=== PATIENT | male | born 1985 | race Caucasian/White ===

== ENCOUNTER 2020-02-11 04:37 | Observation (INO) ==
[2020-02-11 05:02] VITALS: BMI 36.1
[2020-02-11] MEDS ORDERED: NS 1000 ML 1,000 ML ONE (05:21)
--- NOTE | 2020-02-11 05:42 | DR.EXTPAIN ---
HPI Time seen Time Seen by Provider: 02/11/20 05:41 PCP Primary Care Physician: OLENA Complaint/Symptoms Chief Complaint:: PT TO ER FOR COMPLAINT OF RIGHT KNEE PAIN STATING THAT IT IS SWELLING AND DRAINING. PT HAS SEROSANGUINOUS DRAINAGE NOTED. PT WAS SEEN ON FEBRUARY 04 AND WAS GIVEN PREDNISONE AND INDOMETHACIN HE STATES THAT IT HAS GOTTEN WORSE. DR. JEFFERS AT BEDSIDE DURING TRIAGE AND WOUND CULTURES X2 COLLECTED LABLED AND TAKEN TO LAB. COVID-19 Coronavirus risk:travel/contact w/high risk person: No Has patient experienced Coronavirus symptoms: No Source History Provided: Patient Mode of arrival Mode of Arrival: Ambulatory Timing Onset of Chief Complaint: 02/05/20 PMH PMH Past Medical History: No Past Surgical History: No Surgical History: Abdominal Surgery Family History History of Family Medical Conditions: Yes Family Medical History: [place] and Coronary Artery Disease Social History Does patient currently use any type of tobacco product: No Have you used tobacco products in the last 12 months: No Type of Tobacco Use: None Does any household member use tobacco: No Alcohol Use: None Do you use any recreational Drugs:: No Lives With: Spouse Lives Where: Home Travel Risk Coronavirus risk:travel/contact w/high risk person: No Has patient experienced Coronavirus symptoms: No Infectious screening In the last 2 months have you had wt loss of >10#?: NO Have you had fever, night sweats or hemotysis?: No Have you traveled outside the country in the last 6 months?: No Isolation: Standard PE Vital Signs Vitals: Temperature 98.0 F Pulse Rate [Right Radial] 78 Pulse Rate 91 Respiratory Rate 18 Blood Pressure [Left Arm] 128/82 Blood Pressure 158/92 O2 Sat by Pulse Oximetry 99 ROR Labs Reviewed Result Diagrams: 02/11/20 05:47 02/11/20 05:47 Laboratory: WBC 17.9 X10^3/uL (3.6-10.0) H 02/11/20 05:47 RBC 4.80 X10^6/uL (4.7-6.0) 02/11/20 05:47 Hgb 14.8 g/dL (13.5-18.0) 02/11/20 05:47 Hct 43.0 % (42.0-54.0) 02/11/20 05:47 MCV 89.5 fL (80.0-100.0) 02/11/20 05:47 MCH 30.9 pg (27.0-34.0) 02/11/20 05:47 MCHC 34.5 g/dL (33.0-35.0) 02/11/20 05:47 RDW 13.1 % (11.6-16.5) 02/11/20 05:47 Plt Count 381 X10^3/uL (150.0-450.0) 02/11/20 05:47 MPV 8.1 fL (7.4-11.0) 02/11/20 05:47 Neut % (Auto) 72.7 % (42.0-75.0) 02/11/20 05:47 Lymph % (Auto) 15.8 % (21.0-51.0) L 02/11/20 05:47 [place] % (Auto) 10.2 % (0.0-13.0) 02/11/20 05:47 Eos % (Auto) 0.6 % (0.9-2.9) L 02/11/20 05:47 Baso % (Auto) 0.7 % (0.2-1.0) 02/11/20 05:47 Neut # (Auto) 13.0 x10^3/uL (2.2-4.8) H 02/11/20 05:47 Lymph # (Auto) 2.8 X10^3/uL (1.3-2.9) 02/11/20 05:47 [place] # (Auto) 1.8 x10^3/uL (0.3-0.8) H 02/11/20 05:47 Eos # (Auto) 0.1 x10^3/uL (0.0-0.2) 02/11/20 05:47 Baso # (Auto) 0.1 X10^3/uL (0.0-0.1) 02/11/20 05:47 Absolute Nucleated RBC 0.1 /100WBC 02/11/20 05:47 Sodium 138 mmol/L (136-145) 02/11/20 05:47 Corrected Sodium TNP 02/11/20 05:47 Potassium 3.4 mmol/L (3.5-5.1) L 02/11/20 05:47 Chloride 100 mmol/L (98-107) 02/11/20 05:47 Carbon Dioxide 30.0 mmol/L (21-32) 02/11/20 05:47 BUN 18 mg/dL (7-18) 02/11/20 05:47 Creatinine 1.09 mg/dL (0.70-1.30) 02/11/20 05:47 Est GFR (MDRD) Af Amer > 60 (>60) 02/11/20 05:47 Est GFR (MDRD) Non-Af > 60 (>60) 02/11/20 05:47 Glucose 106 mg/dL (65-99) H 02/11/20 05:47 Calcium 9.3 mg/dL (8.5-10.1) 02/11/20 05:47 Corrected Calcium TNP 02/11/20 05:47 Total Bilirubin 0.70 mg/dL (0.2-1.0) 02/11/20 05:47 AST 15 Units/L (15-37) 02/11/20 05:47 ALT 29 Units/L (12-78) 02/11/20 05:47 Alkaline Phosphatase 74 Units/L (46-116) 02/11/20 05:47 C-Reactive Protein 54.60 mg/L (0-3.0) H 02/11/20 05:47 Total Protein 8.5 g/dL (6.4-8.2) H 02/11/20 05:47 Albumin 3.7 g/dL (3.4-5.0) 02/11/20 05:47 Globulin 4.8 g/dL (2.5-4.5) H 02/11/20 05:47 Albumin/Globulin Ratio 0.8 Ratio (1.1-2.1) L 02/11/20 05:47 Opioid Opioid Risk Tool Age (Olaf box if 16-45): Yes History of Preadolescent Sexual Abuse: No Total: 1 Total Score Risk Category: Low Risk Copyright: Jeremiah LIZAMA predicting aberrant behaviors
[2020-02-11] MEDS: NS 1000 ML 1,000 ML IV SCH ×3 (05:44→22:10)
[2020-02-11 05:58] LABS: BASOPHILS # (AUTO) 0.1 X10^3/uL (0.0-0.1); BASOPHILS % (AUTO) 0.7 % (0.2-1.0); EOSINOPHILS # (AUTO) 0.1 x10^3/uL (0.0-0.2); EOSINOPHILS % (AUTO) 0.6 % (0.9-2.9); HEMOGLOBIN 14.8 g/dL (13.5-18.0); LYMPHOCYTES # (AUTO) 2.8 X10^3/uL (1.3-2.9); LYMPHOCYTES % (AUTO) 15.8 % (21.0-51.0); MEAN CORPUSCULAR HEMOGLOBIN 30.9 pg (27.0-34.0); MEAN CORPUSCULAR HGB CONC 34.5 g/dL (33.0-35.0); MEAN CORPUSCULAR VOLUME 89.5 fL (80.0-100.0); MEAN PLATELET VOLUME 8.1 fL (7.4-11.0); MONOCYTES # (AUTO) 1.8 x10^3/uL (0.3-0.8); MONOCYTES % (AUTO) 10.2 % (0.0-13.0); NEUTROPHILS % (AUTO) 72.7 % (42.0-75.0); PLATELET COUNT 381 X10^3/uL (150.0-450.0); RED CELL DISTRIBUTION WIDTH 13.1 % (11.6-16.5); WHITE BLOOD COUNT 17.9 X10^3/uL (3.6-10.0)
--- NOTE | 2020-02-11 05:58 | RAD ---
HISTORYSWELLING TO RIGHT KNEE WITH DRAINAGESTUDYKNEE, AP/LAT RIGHTCOMPARISONNoneFINDINGSLimited assessment due to obliquity of the lateral view. Nonspecific prepatellar soft tissue edema. 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 Suspect small suprapatellar effusion.IMPRESSIONNonspecific prepatellar soft tissue prominence may represent edema, hematoma, or prepatellar bursitis. No acute osseous abnormality identified.Question small suprapatellar effusion.Electronically signed by: Barbara Edwards (Feb 11, 2020 05:57:37)
[2020-02-11] MEDS ORDERED: VANCOMYCIN IV *PREMIX 1 G/200 ML BAG 1 G/200 ML PIGGYBACK IV ONE (06:41)
[2020-02-11] MEDS ORDERED: VANCOMYCIN HCL ONE (06:44)
[2020-02-11 06:45] LABS: ALANINE AMINOTRANSFERASE 29 Units/L (12-78); ALBUMIN 3.7 g/dL (3.4-5.0); ALKALINE PHOSPHATASE 74 Units/L (46-116); ASPARTATE AMINO TRANSFERASE 15 Units/L (15-37); BLOOD UREA NITROGEN 18 mg/dL (7-18); CALCIUM 9.3 mg/dL (8.5-10.1); CHLORIDE 100 mmol/L (98-107); CREATININE 1.09 mg/dL (0.70-1.30); SODIUM 138 mmol/L (136-145); TOTAL PROTEIN 8.5 g/dL (6.4-8.2); eGFR NON BLACK RACES > 60 (>60)
[2020-02-11] MEDS ORDERED: NS 250 ML IV 250 ML IV ONE (06:45)
[2020-02-11] MEDS ORDERED: TORADOL 30 MG VIAL IVP ONE (06:48)
[2020-02-11] MEDS ORDERED: TORADOL 30 MG VIAL ONE (06:51)
[2020-02-11] MEDS ORDERED: ZOFRAN TAB 4 MG PO PRN (08:32)
[2020-02-11] MEDS ORDERED: NS 1000 ML 1,000 ML IV SCH (08:32)
[2020-02-11] MEDS: VANCOMYCIN HCL 1 G in D5W 250 ML IV 250 ML IV SCH ×3 (12:32→21:39)
[2020-02-11] MEDS: MOTRIN TAB 600 MG PO PRN ×2 (13:00→22:09)
[2020-02-11] MEDS: TORADOL 30 MG VIAL IVP PRN (15:22)
--- NOTE | 2020-02-11 18:39 | DR.H&P ---
H&P - History & Physical for Day of: H&P Date: 02/11/20 - Chief Complaint Chief Complaint: RIGHT KNEE PAIN, REDNESS AND SWELLING - History of Present Illness History of Present Illness: PT IS 34 WM ER ADMISSION AFTER PRESENTING TO THE ER FOR 3 RD VISIT RELATED TO RIGHT KNEE PAIN, REDNESS AND SWELLING. PT STATES HE THOUGHT HE HAD "INGROWN HAIR" ON KNEE CAP ~ 1 WEEK AGO. PT WAS SEEN IN ER AND STARTED ON NSAID AND STEROIDS WITHOUT IMPROVEMENT. PT REPORTS HX OF MCL INJURY IN THE PAST WITHOUT SURGERY. PT HAD WBC 17K ON ADMISSION. PT HAD ASPIRATION OF DRAINAGE PER DR JEFFERS IN ER, ADMITTED FOR IV VANCOMYCIN TREATMENT OF CELLULITIS OF KNEE. - Past Medical History Past Medical History: denies: Coronary Artery Disease, Diabetes, Hypertension - Past Surgical History Surgical History: Abdominal Surgery - Family History Family Medical History: [place], Coronary Artery Disease - Social History Does patient currently use any type of tobacco product: No Have you used tobacco products in the last 12 months: No Type of Tobacco Use: None Does any household member use tobacco: No Alcohol Use: None Drug Use: None - Medications Home Medications: No Known Drug Allergies Allergy (Verified 02/05/20 01:51) - Review of Systems Constitutional: No Symptoms Reported Eyes: No Symptoms Reported ENT: No Symptoms Reported Respiratory: No Symptoms Reported Cardiovascular: No Symptoms Reported Gastrointestinal: Nausea Genitourinary: No Symptoms Reported Musculoskeletal: Leg Pain Skin: Wound Neurological: No Symptoms Reported - Physical Exam Vital Signs: Temperature 98.0 F Pulse Rate [Right Radial] 85 Pulse Rate 91 Respiratory Rate 18 Blood Pressure [Left Arm] 129/65 Blood Pressure 158/92 O2 Sat by Pulse Oximetry 96 Oriented: Normal Eyes: Normal Ear: Normal Nose: Normal Throat: Normal Respiratory: Clear Throughout Cardiovascular: Normal : Normal Auscultation: Bowel Sounds: Normal Palpation: Normal Tenderness: Normal Skin: Red, Tender, Hot, Wound (ABSCESS FORMATION TO RIGHT KNEE ) Musculoskeletal: Right, Knee, Swelling, Tender Psychiatric: Normal Mood Description: Calm Speech Pattern: Clear, Appropriate - Assessment/Plan (1) Cellulitis of knee, right Status: Acute Plan: ADMIT, WOUND AND BLOOD CULTURE ON ADMISSION. URIC ACID LEVEL , POTASSIUM REPLACEMENT. IV VANCOMYCIN, CT RIGHT KNEE (MRI CONTRAINDICATION). PAIN CONTROL, IV HYDRATION (2) Effusion, right knee Status: Acute - Allergies Allergies/Adverse Reactions: Allergies Allergy/AdvReac Type Severity Reaction Status Date / Time No Known Drug Allergies Allergy Verified 02/05/20 01:51
[2020-02-11] MEDS ORDERED: HYDROGEN PEROXIDE 3% ONE (20:24)
[2020-02-12] MEDS: TORADOL 30 MG VIAL IVP PRN (01:22)
[2020-02-12] MEDS: NS 1000 ML 1,000 ML IV SCH (03:07)
[2020-02-12 04:28] VITALS: BP 157/84
== END 2020-02-12 04:25 | disposition left against medical advice (07) ==
LOC: ER 04:37 → MED/SURG 06:54 → INTOOBSV 06:54 → MED/SURG 08:26
PROVIDERS: ADMIT Internal Medicine; ATTEND Internal Medicine
DX: Z11.59 Encounter for screening for other viral diseases; I10 Essential (primary) hypertension; M25.461 Effusion, right knee; L03.116 Cellulitis of left lower limb; R79.82 Elevated C-reactive protein (CRP); I25.10 Atherosclerotic heart disease of native coronary artery without angina pectoris; B95.62 Methicillin resistant Staphylococcus aureus infection as the cause of diseases classified elsewhere; E11.65 Type 2 diabetes mellitus with hyperglycemia; M25.561 Pain in right knee
CPT/HCPCS: 36415; 73560; 80053; 85025; 86140; 87040; 87070; 87075; 87077; 87186; 87205; 87635; 96365; 96367; 96374; 96375; 99284; A4222; G0378; J1885; J3370; J7030; J7060

== ENCOUNTER 2020-02-12 23:17 | Inpatient (IN) ==
--- NOTE | 2020-02-13 00:12 | DR.EXTPAIN ---
HPI Time seen Time Seen by Provider: 02/12/20 23:56 PCP Primary Care Physician: OLENA HPI Comment HPI Comment: Patient left AMA yesterday morning. Admitted for cellulitis of right knee after failing outpatient therapy. Patient notes that knee pain and re dness is worse so he decided to come back in. Complaint/Symptoms Chief Complaint Doctor Comments: knee pain Chief Complaint:: PT INTO ED REQUESTING WHEELCHAIR AND C/O EDEMA TO RIGHT KNEE; PATIENT WAS ADMITTED AT THIS FACILITY AND SIGNED OUT AMA ON Tuesday. COVID-19 Coronavirus risk:travel/contact w/high risk person: No Has patient experienced Coronavirus symptoms: Yes Coronavirus symptoms experienced: Fever Nurses notes reviewed Nurses Notes Review: Yes Source History Provided: Patient Mode of arrival Mode of Arrival: Ambulatory Timing Onset of Chief Complaint: 02/05/20 Associated signs and symptoms Associated Signs and Symptoms: Fever and Other (joint pain) PMH PMH Past Medical History: Yes Past Surgical History: No Surgical History: Abdominal Surgery Family History History of Family Medical Conditions: No Family Medical History: [place] and Coronary Artery Disease Social History Alcohol Use: None Do you use any recreational Drugs:: No Lives With: Family Lives Where: Home Travel Risk Coronavirus risk:travel/contact w/high risk person: No Has patient experienced Coronavirus symptoms: Yes Coronavirus symptoms experienced: Fever Infectious screening In the last 2 months have you had wt loss of >10#?: NO Have you had fever, night sweats or hemotysis?: No Have you traveled outside the country in the last 6 months?: No Isolation: Standard ROS Review of Systems Constitutional: No Symptoms Reported Eyes: No Symptoms Reported ENTM: No Symptoms Reported Respiratoy: No Symptoms Reported Cardiovascular: No Symptoms Reported Gastrointestinal/Abdominal: No Symptoms Reported Genitourinary: No Symptoms Reported Neurological: No Symptoms Reported Musculoskeletal: See HPI, Joint Pain and Joint Swelling Integumentary: No Symptoms Reported Hematologic/Lymphatic: No Symptoms Reported Endocrine: No Symptoms Reported Psychiatric: No Symptoms Reported All Other Systems: Reviewed and Negative PE Vital Signs Vitals: Temperature 100.2 F Pulse Rate 93 Respiratory Rate 22 Blood Pressure [Left Arm] 157/84 Blood Pressure 135/70 O2 Sat by Pulse Oximetry 97 General Limitations: No Limitations Head Head Exam: Normal Inspection, Atraumatic and Normocephalic Eyes Eye exam: Normal Appearance, PERRL and EOMI ENT ENT Exam: Normal Exam and Normal Oropharynx Neck Neck Exam: Normal Inspection and Full ROM Chest Chest Inspection: Normal Inspection and Symmetric Chest Wall Rise Respiratory Respiratory Exam: Normal Lung Sounds Bilat Cardiovascular Cardiovascular Exam: Regular Rate and Normal Rhythm Abdominal Exam Abdominal Exam: Normal Inspection Extremities Extremities Exam: Tenderness, Joint Swelling and Other (erythema at right knee) Lower Extremities Knee Exam: Tenderness, Swelling and Erythema MDM Differential Diagnosis Differential Diagnosis: Other (cellulitis) COURSE Treatment Treatment: restart antibiotics from previous admit. spoke with Dr. Lopez who agrees with and accepts patient for admission. ROR Labs Reviewed Laboratory Results Reviewed?: Yes Opioid Opioid Risk Tool Age (Olaf box if 16-45): Yes History of Preadolescent Sexual Abuse: No Total: 1 Total Score Risk Category: Low Risk Copyright: Jeremiah LIZAMA predicting aberrant behaviors Diagnosis Discharge Problem: Cellulitis of knee, right
[2020-02-13] MEDS ORDERED: VANCOMYCIN IV *PREMIX 1 G/200 ML BAG 1 G/200 ML PIGGYBACK IV SCH (00:18)
[2020-02-13] MEDS ORDERED: VANCOMYCIN HCL ONE (00:26)
[2020-02-13] MEDS ORDERED: NS 1000 ML 1,000 ML ONE (00:27)
[2020-02-13] MEDS ORDERED: NS 250 ML IV 250 ML IV ONE (00:28)
[2020-02-13 00:41] LABS: BASOPHILS # (AUTO) 0.1 X10^3/uL (0.0-0.1); BASOPHILS % (AUTO) 0.4 % (0.2-1.0); EOSINOPHILS # (AUTO) 0.3 x10^3/uL (0.0-0.2); EOSINOPHILS % (AUTO) 1.9 % (0.9-2.9); HEMATOCRIT 41.4 % (42.0-54.0); HEMOGLOBIN 14.1 g/dL (13.5-18.0); LYMPHOCYTES # (AUTO) 2.3 X10^3/uL (1.3-2.9); LYMPHOCYTES % (AUTO) 14.1 % (21.0-51.0); MEAN CORPUSCULAR HEMOGLOBIN 30.7 pg (27.0-34.0); MEAN CORPUSCULAR HGB CONC 34.1 g/dL (33.0-35.0); MEAN PLATELET VOLUME 7.4 fL (7.4-11.0); MONOCYTES # (AUTO) 1.6 x10^3/uL (0.3-0.8); MONOCYTES % (AUTO) 9.7 % (0.0-13.0); NEUTROPHILS # (AUTO) 12.2 x10^3/uL (2.2-4.8); NEUTROPHILS % (AUTO) 73.9 % (42.0-75.0); PLATELET COUNT 341 X10^3/uL (150.0-450.0); RED CELL DISTRIBUTION WIDTH 12.9 % (11.6-16.5); WHITE BLOOD COUNT 16.5 X10^3/uL (3.6-10.0)
[2020-02-13 00:48] LABS: ALANINE AMINOTRANSFERASE 35 Units/L (12-78); ALBUMIN 3.3 g/dL (3.4-5.0); ALKALINE PHOSPHATASE 76 Units/L (46-116); ASPARTATE AMINO TRANSFERASE 15 Units/L (15-37); BLOOD UREA NITROGEN 13 mg/dL (7-18); CALCIUM 8.3 mg/dL (8.5-10.1); CARBON DIOXIDE 28.5 mmol/L (21-32); CHLORIDE 101 mmol/L (98-107); COR CA(FOR HYPOALB) 8.9 mg/dL (8.5-10.1); CREATININE 1.05 mg/dL (0.70-1.30); SODIUM 136 mmol/L (136-145); TOTAL PROTEIN 7.8 g/dL (6.4-8.2); eGFR NON BLACK RACES > 60 (>60)
[2020-02-13] MEDS: NS 1000 ML 1,000 ML IV SCH ×4 (00:55→20:33)
[2020-02-13 02:58] VITALS: BMI 41.9
[2020-02-13] MEDS ORDERED: VANCOMYCIN HCL 500 MG, VANCOMYCIN HCL 1 G in D5W 250 ML IV 250 ML IV SCH (03:00)
[2020-02-13 06:28] LABS: BASOPHILS # (AUTO) 0.1 X10^3/uL (0.0-0.1); BASOPHILS % (AUTO) 0.4 % (0.2-1.0); EOSINOPHILS # (AUTO) 0.3 x10^3/uL (0.0-0.2); EOSINOPHILS % (AUTO) 1.8 % (0.9-2.9); HEMATOCRIT 39.8 % (42.0-54.0); HEMOGLOBIN 13.4 g/dL (13.5-18.0); LYMPHOCYTES # (AUTO) 2.7 X10^3/uL (1.3-2.9); LYMPHOCYTES % (AUTO) 17.3 % (21.0-51.0); MEAN CORPUSCULAR HEMOGLOBIN 30.6 pg (27.0-34.0); MEAN CORPUSCULAR HGB CONC 33.7 g/dL (33.0-35.0); MEAN CORPUSCULAR VOLUME 90.9 fL (80.0-100.0); MEAN PLATELET VOLUME 7.2 fL (7.4-11.0); MONOCYTES # (AUTO) 1.7 x10^3/uL (0.3-0.8); MONOCYTES % (AUTO) 11.1 % (0.0-13.0); NEUTROPHILS # (AUTO) 10.9 x10^3/uL (2.2-4.8); NEUTROPHILS % (AUTO) 69.4 % (42.0-75.0); PLATELET COUNT 292 X10^3/uL (150.0-450.0); RED BLOOD COUNT 4.38 X10^6/uL (4.7-6.0); RED CELL DISTRIBUTION WIDTH 12.9 % (11.6-16.5); WHITE BLOOD COUNT 15.6 X10^3/uL (3.6-10.0)
[2020-02-13 06:36] LABS: ALANINE AMINOTRANSFERASE 29 Units/L (12-78); ALKALINE PHOSPHATASE 74 Units/L (46-116); ASPARTATE AMINO TRANSFERASE 14 Units/L (15-37); BLOOD UREA NITROGEN 10 mg/dL (7-18); CALCIUM 8.3 mg/dL (8.5-10.1); CARBON DIOXIDE 26.6 mmol/L (21-32); CHLORIDE 103 mmol/L (98-107); COR CA(FOR HYPOALB) 9.1 mg/dL (8.5-10.1); COR NA(FOR HYPERGLY) 139 mmol/L (136-145); CREATININE 0.94 mg/dL (0.70-1.30); SODIUM 138 mmol/L (136-145); TOTAL PROTEIN 7.3 g/dL (6.4-8.2); eGFR NON BLACK RACES > 60 (>60)
[2020-02-13] MEDS ORDERED: NEOSPORIN OINT ONE ×3 (08:40→21:44)
[2020-02-13] MEDS: VANCOMYCIN HCL 500 MG, VANCOMYCIN HCL 1 G in D5W 250 ML IV 250 ML IV SCH ×2 (08:51→20:33)
[2020-02-13] MEDS ORDERED: PHARMACY CONSULT - VANCOMYCIN XX SCH (09:00)
[2020-02-13] MEDS: NORCO 5/325 MG TAB PO PRN ×3 (09:20→21:39)
--- NOTE | 2020-02-13 14:01 | DR.H&P ---
H&P History & Physical for Day of: H&P Date: 02/13/20 Chief Complaint Chief Complaint: right knee redness and drainage Allergies Allergies Allergy/AdvReac Type Severity Reaction Status Date / Time No Known Drug Allergies Allergy Verified 02/05/20 01:51 History of Present Illness History of Present Illness: Mr. Subramanian is a 34y/o male who presented with worsening right knee and leg cellulitis. He was seen in the ER previously and given prednisone and indomethacin. He came again and was admitted due to worsening redness and purulent drainage. Patient left AMA after staying one day and now presented again. He denies fever or chills. No hx of skin/soft tissue in fections. He does not take any medications. He initially thought it was an in grown hair but then the redness and the drainage increased. He reports pain with ambulation. ED work-up WBC: 16.5 Wound Cx: MRSA Blood Cx: neg so far XR: Nonspecific prepatellar soft tissue prominence may represent edema, hematoma, or prepatellar bursitis. No acute osseous abnormality identified. Plan: continue vancomycin, follow cultures, CT LE to rule out osteomyelitis or any bone destruction in the knee, monitor erythema, AM labs. Continue IVF fluids and pain control. Past Surgical History Surgical History: Abdominal Surgery Family History Family Medical History: [place] and Coronary Artery Disease Social History Does patient currently use any type of tobacco product: Yes Have you used tobacco products in the last 12 months: Yes Type of Tobacco Use: Smokeless Alcohol Use: None Drug Use: None Medications Home Medications: No Known Drug Allergies Allergy (Verified 02/05/20 01:51) CONTINUE taking the following medications indomethacin 25 mg PO TID 02/13/20 [History] prednisone 10 mg PO DIRECTED 02/13/20 [History] Labs Result Diagrams: 02/13/20 05:30 02/13/20 05:30 Labs: Laboratory WBC 15.6 X10^3/uL (3.6-10.0) H 02/13/20 05:30 RBC 4.38 X10^6/uL (4.7-6.0) L 02/13/20 05:30 Hgb 13.4 g/dL (13.5-18.0) L 02/13/20 05:30 Hct 39.8 % (42.0-54.0) L 02/13/20 05:30 MCV 90.9 fL (80.0-100.0) 02/13/20 05:30 MCH 30.6 pg (27.0-34.0) 02/13/20 05:30 MCHC 33.7 g/dL (33.0-35.0) 02/13/20 05:30 RDW 12.9 % (11.6-16.5) 02/13/20 05:30 Plt Count 292 X10^3/uL (150.0-450.0) 02/13/20 05:30 MPV 7.2 fL (7.4-11.0) L 02/13/20 05:30 Neut % (Auto) 69.4 % (42.0-75.0) 02/13/20 05:30 Lymph % (Auto) 17.3 % (21.0-51.0) L 02/13/20 05:30 [place] % (Auto) 11.1 % (0.0-13.0) 02/13/20 05:30 Eos % (Auto) 1.8 % (0.9-2.9) 02/13/20 05:30 Baso % (Auto) 0.4 % (0.2-1.0) 02/13/20 05:30 Neut # (Auto) 10.9 x10^3/uL (2.2-4.8) H 02/13/20 05:30 Lymph # (Auto) 2.7 X10^3/uL (1.3-2.9) 02/13/20 05:30 [place] # (Auto) 1.7 x10^3/uL (0.3-0.8) H 02/13/20 05:30 Eos # (Auto) 0.3 x10^3/uL (0.0-0.2) H 02/13/20 05:30 Baso # (Auto) 0.1 X10^3/uL (0.0-0.1) 02/13/20 05:30 Absolute Nucleated RBC 0.0 /100WBC 02/13/20 05:30 Sodium 138 mmol/L (136-145) 02/13/20 05:30 Corrected Sodium 139 mmol/L (136-145) 02/13/20 05:30 Potassium 4.2 mmol/L (3.5-5.1) 02/13/20 05:30 Chloride 103 mmol/L (98-107) 02/13/20 05:30 Carbon Dioxide 26.6 mmol/L (21-32) 02/13/20 05:30 BUN 10 mg/dL (7-18) 02/13/20 05:30 Creatinine 0.94 mg/dL (0.70-1.30) 02/13/20 05:30 Est GFR (MDRD) Af Amer > 60 (>60) 02/13/20 05:30 Est GFR (MDRD) Non-Af > 60 (>60) 02/13/20 05:30 Glucose 125 mg/dL (65-99) H 02/13/20 05:30 Calcium 8.3 mg/dL (8.5-10.1) L 02/13/20 05:30 Corrected Calcium 9.1 mg/dL (8.5-10.1) 02/13/20 05:30 Total Bilirubin 0.50 mg/dL (0.2-1.0) 02/13/20 05:30 AST 14 Units/L (15-37) L 02/13/20 05:30 ALT 29 Units/L (12-78) 02/13/20 05:30 Alkaline Phosphatase 74 Units/L (46-116) 02/13/20 05:30 Total Protein 7.3 g/dL (6.4-8.2) 02/13/20 05:30 Albumin 3.0 g/dL (3.4-5.0) L 02/13/20 05:30 Globulin 4.3 g/dL (2.5-4.5) 02/13/20 05:30 Albumin/Globulin Ratio 0.7 Ratio (1.1-2.1) L 02/13/20 05:30 Review of Systems Constitutional: No Symptoms Reported Eyes: No Symptoms Reported ENT: No Symptoms Reported Respiratory: No Symptoms Reported Cardiovascular: No Symptoms Reported Gastrointestinal: No Symptoms Reported Genitourinary: No Symptoms Reported Musculoskeletal: Leg Pain Skin: Wound Neurological: No Symptoms Reported Physical Exam Vital Signs: Temperature 98.9 F Pulse Rate [Right Brachial] 78 Pulse Rate 93 Respiratory Rate 20 Blood Pressure [Left Arm] 120/58 Blood Pressure 135/70 O2 Sat by Pulse Oximetry 97 Oriented: Normal Eyes: Normal Ear: Normal Nose: Normal Throat: Normal Respiratory: Clear Throughout Cardiovascular: Normal Auscultation: Bowel Sounds: Normal Palpation: Normal Tenderness: Normal Skin: Tender and Other (right knee and upper thigh erythema within the marking, purulent drainage from the knee wound, warm, tender) Musculoskeletal: Right, Thigh, Knee and Leg Psychiatric: Normal Mood Description: Calm Speech Pattern: Clear and Appropriate Assessment/Plan (1) Cellulitis of knee, right: Status: Acute (2) Pain in right knee: Qualifiers: Chronicity: acute Qualified Code(s): M25.561 - Pain in right knee Status: Acute Review H&P Reviewed: Yes Patient was examined?: Yes
--- NOTE | 2020-02-13 14:22 | CT ---
Exam:LOWER EXT WITH CONIndication: SWELLING CELLULITIS RIGHT KNEE STARTED AT PATELLAR REGIONComparison: [None available]Technique: Axial images of the [right knee] were obtained with coronal and sagittal reformatted images performed. Intravenous contrast administration [ was ] performed.Dose reduction techniques including Automated Exposure Control (AEC) and adjustment of mA and kV were utilized.Findings: [Peripherally enhancing fluid collection within anterior subcutaneous tissues of the right knee just inferior] to the patella measures 2.3 x 1.5 x 1.9 cm. Moderate surrounding inflammatory change in skin thickening consistent with cellulitis.Non localizing fluid tracks along the anterior fascia of the anterior compartment of the foreleg.No soft tissue gas is identified within the visualized foreleg.Moderate medial and mild lateral femorotibial compartment joint space loss and osteophyte formation.IMPRESSIONAn approximate 2.3 x 1.5 x 1.9 cm abscess within the anterior subcutaneous tissues of the knee just inferior to the patella. Marked surrounding cellulitis and skin thickening of the infrapatellar soft tissues.Small suprapatellar joint effusion.Moderate medial and mild lateral femorotibial compartment osteoarthrosis.Electronically signed by: LENARD LUCERO (Feb 13, 2020 14:20:31)
[2020-02-14] MEDS: NS 1000 ML 1,000 ML IV SCH ×4 (00:26→18:15)
[2020-02-14 06:09] LABS: BASOPHILS # (AUTO) 0.1 X10^3/uL (0.0-0.1); BASOPHILS % (AUTO) 0.9 % (0.2-1.0); EOSINOPHILS # (AUTO) 0.4 x10^3/uL (0.0-0.2); EOSINOPHILS % (AUTO) 2.5 % (0.9-2.9); HEMATOCRIT 40.5 % (42.0-54.0); HEMOGLOBIN 13.6 g/dL (13.5-18.0); LYMPHOCYTES # (AUTO) 2.6 X10^3/uL (1.3-2.9); LYMPHOCYTES % (AUTO) 17.9 % (21.0-51.0); MEAN CORPUSCULAR HEMOGLOBIN 30.2 pg (27.0-34.0); MEAN CORPUSCULAR HGB CONC 33.7 g/dL (33.0-35.0); MEAN CORPUSCULAR VOLUME 89.8 fL (80.0-100.0); MEAN PLATELET VOLUME 7.7 fL (7.4-11.0); MONOCYTES # (AUTO) 1.7 x10^3/uL (0.3-0.8); MONOCYTES % (AUTO) 11.5 % (0.0-13.0); NEUTROPHILS # (AUTO) 9.9 x10^3/uL (2.2-4.8); NEUTROPHILS % (AUTO) 67.2 % (42.0-75.0); PLATELET COUNT 326 X10^3/uL (150.0-450.0); RED BLOOD COUNT 4.51 X10^6/uL (4.7-6.0); RED CELL DISTRIBUTION WIDTH 13.3 % (11.6-16.5); WHITE BLOOD COUNT 14.7 X10^3/uL (3.6-10.0)
[2020-02-14 06:25] LABS: BLOOD UREA NITROGEN 7 mg/dL (7-18); CALCIUM 8.2 mg/dL (8.5-10.1); CARBON DIOXIDE 23.3 mmol/L (21-32); CHLORIDE 106 mmol/L (98-107); COR NA(FOR HYPERGLY) 141 mmol/L (136-145); CREATININE 0.83 mg/dL (0.70-1.30); SODIUM 140 mmol/L (136-145); eGFR NON BLACK RACES > 60 (>60)
--- NOTE | 2020-02-14 08:22 | PCM.PROG ---
Progress Note Progress Note for Day of Date of Exam: 02/14/20 Subjective Subjective: Patient seen at bedside, no overnight events. He states he is doing alright, still having some pain. His leg erythema has improved. He is being treated for right leg cellulitis with open wound on the knee with purulent drainage. He had CT done yesterday which showed a small abscess. Dr. Menjivar was consulted and is planning to to I&D today. Labs: wound Cx: MRSA, WBC trending down Plan: continue IV vancomycin, IVF, pain control, follow Dr. Menjivar's recommendations, follow cultures. Past Medical Family Social History Past Med/Fam/Surg Hx: No changes since H&P Allergies: Allergies No Known Drug Allergies Allergy (Verified 02/05/20 01:51) Review of Systems ROS: No change since H&P Vital Signs and I&O's Vital Signs: Temperature 98.5 F Pulse Rate [Right Brachial] 80 Pulse Rate 93 Respiratory Rate 22 Blood Pressure [Left Arm] 133/71 Blood Pressure 135/70 O2 Sat by Pulse Oximetry 96 Intake and Output: Intake & Output 02/11/20 02/12/20 02/13/20 02/14/20 23:59 23:59 23:59 23:59 Intake Total 4715 / 4715 2360 / 2360 Balance 4715 / 4715 2360 / 2360 Physical Exam Oriented: Normal Eyes: Normal Nose: Normal Throat: Normal Respiratory: Normal Cardiovascular: Normal Auscultation: Bowel Sounds: Normal Tenderness: Normal Skin: Tender and Other (Right leg erythema significantly improved, more around the knee now, warm, tender) Musculoskeletal: Right, Thigh, Knee and Leg Psychiatric: Normal Mood Description: Calm Speech Pattern: Clear and Appropriate Laboratory and Diagnostics Result Diagrams: 02/14/20 05:14 02/14/20 05:14 Labs: Laboratory WBC 14.7 X10^3/uL (3.6-10.0) H 02/14/20 05:14 RBC 4.51 X10^6/uL (4.7-6.0) L 02/14/20 05:14 Hgb 13.6 g/dL (13.5-18.0) 02/14/20 05:14 Hct 40.5 % (42.0-54.0) L 02/14/20 05:14 MCV 89.8 fL (80.0-100.0) 02/14/20 05:14 MCH 30.2 pg (27.0-34.0) 02/14/20 05:14 MCHC 33.7 g/dL (33.0-35.0) 02/14/20 05:14 RDW 13.3 % (11.6-16.5) 02/14/20 05:14 Plt Count 326 X10^3/uL (150.0-450.0) 02/14/20 05:14 MPV 7.7 fL (7.4-11.0) 02/14/20 05:14 Neut % (Auto) 67.2 % (42.0-75.0) 02/14/20 05:14 Lymph % (Auto) 17.9 % (21.0-51.0) L 02/14/20 05:14 [place] % (Auto) 11.5 % (0.0-13.0) 02/14/20 05:14 Eos % (Auto) 2.5 % (0.9-2.9) 02/14/20 05:14 Baso % (Auto) 0.9 % (0.2-1.0) 02/14/20 05:14 Neut # (Auto) 9.9 x10^3/uL (2.2-4.8) H 02/14/20 05:14 Lymph # (Auto) 2.6 X10^3/uL (1.3-2.9) 02/14/20 05:14 [place] # (Auto) 1.7 x10^3/uL (0.3-0.8) H 02/14/20 05:14 Eos # (Auto) 0.4 x10^3/uL (0.0-0.2) H 02/14/20 05:14 Baso # (Auto) 0.1 X10^3/uL (0.0-0.1) 02/14/20 05:14 Absolute Nucleated RBC 0.1 /100WBC 02/14/20 05:14 Sodium 140 mmol/L (136-145) 02/14/20 05:14 Corrected Sodium 141 mmol/L (136-145) 02/14/20 05:14 Potassium 3.8 mmol/L (3.5-5.1) 02/14/20 05:14 Chloride 106 mmol/L (98-107) 02/14/20 05:14 Carbon Dioxide 23.3 mmol/L (21-32) 02/14/20 05:14 BUN 7 mg/dL (7-18) 02/14/20 05:14 Creatinine 0.83 mg/dL (0.70-1.30) 02/14/20 05:14 Est GFR (MDRD) Af Amer > 60 (>60) 02/14/20 05:14 Est GFR (MDRD) Non-Af > 60 (>60) 02/14/20 05:14 Glucose 121 mg/dL (65-99) H 02/14/20 05:14 Calcium 8.2 mg/dL (8.5-10.1) L 02/14/20 05:14 Corrected Calcium 9.1 mg/dL (8.5-10.1) 02/13/20 05:30 Total Bilirubin 0.50 mg/dL (0.2-1.0) 02/13/20 05:30 AST 14 Units/L (15-37) L 02/13/20 05:30 ALT 29 Units/L (12-78) 02/13/20 05:30 Alkaline Phosphatase 74 Units/L (46-116) 02/13/20 05:30 Total Protein 7.3 g/dL (6.4-8.2) 02/13/20 05:30 Albumin 3.0 g/dL (3.4-5.0) L 02/13/20 05:30 Globulin 4.3 g/dL (2.5-4.5) 02/13/20 05:30 Albumin/Globulin Ratio 0.7 Ratio (1.1-2.1) L 02/13/20 05:30 Plan (1) Infection of skin due to methicillin resistant Staphylococcus aureus (MRSA): Status: Acute (2) Cellulitis of knee, right: Status: Acute (3) Pain in right knee: Status: Acute Qualifiers: Chronicity: acute Qualified Code(s): M25.561 - Pain in right knee
[2020-02-14] MEDS: VANCOMYCIN HCL 500 MG, VANCOMYCIN HCL 1 G in D5W 250 ML IV 250 ML IV SCH ×2 (08:30→21:28)
[2020-02-14] MEDS: NORCO 5/325 MG TAB PO PRN ×2 (08:30→21:27)
[2020-02-14] MEDS ORDERED: XYLOCAINE 1 % (PLAIN) ONE (08:46)
[2020-02-14] MEDS ORDERED: DILAUDID INJ ONE (09:22)
[2020-02-14] MEDS ORDERED: DILAUDID INJ IVP ONE (09:32)
[2020-02-14] MEDS ORDERED: PHARMACY COMMENT IV NR (20:30)
[2020-02-14 21:00] LABS: CREATININE 0.97 mg/dL (0.70-1.30); VANCOMYCIN,TROUGH 5.4 ug/mL (15-20)
[2020-02-15] MEDS: NS 1000 ML 1,000 ML IV SCH ×4 (00:50→18:10)
[2020-02-15] MEDS: NORCO 5/325 MG TAB PO PRN ×3 (04:34→21:09)
[2020-02-15] MEDS: VANCOMYCIN HCL 500 MG, VANCOMYCIN HCL 1 G in D5W 250 ML IV 250 ML IV SCH ×3 (05:02→21:08)
[2020-02-15 05:40] LABS: BASOPHILS # (AUTO) 0.1 X10^3/uL (0.0-0.1); BASOPHILS % (AUTO) 0.4 % (0.2-1.0); EOSINOPHILS # (AUTO) 0.5 x10^3/uL (0.0-0.2); EOSINOPHILS % (AUTO) 3.2 % (0.9-2.9); HEMATOCRIT 41.3 % (42.0-54.0); HEMOGLOBIN 13.9 g/dL (13.5-18.0); LYMPHOCYTES # (AUTO) 2.4 X10^3/uL (1.3-2.9); MEAN CORPUSCULAR HEMOGLOBIN 30.4 pg (27.0-34.0); MEAN CORPUSCULAR HGB CONC 33.7 g/dL (33.0-35.0); MEAN CORPUSCULAR VOLUME 90.2 fL (80.0-100.0); MEAN PLATELET VOLUME 7.7 fL (7.4-11.0); MONOCYTES # (AUTO) 1.4 x10^3/uL (0.3-0.8); MONOCYTES % (AUTO) 9.2 % (0.0-13.0); NEUTROPHILS # (AUTO) 10.6 x10^3/uL (2.2-4.8); NEUTROPHILS % (AUTO) 71.2 % (42.0-75.0); PLATELET COUNT 337 X10^3/uL (150.0-450.0); RED BLOOD COUNT 4.58 X10^6/uL (4.7-6.0); RED CELL DISTRIBUTION WIDTH 12.9 % (11.6-16.5); WHITE BLOOD COUNT 14.9 X10^3/uL (3.6-10.0)
[2020-02-15 05:48] LABS: BLOOD UREA NITROGEN 7 mg/dL (7-18); CALCIUM 8.3 mg/dL (8.5-10.1); CARBON DIOXIDE 26.2 mmol/L (21-32); CHLORIDE 104 mmol/L (98-107); COR NA(FOR HYPERGLY) 140 mmol/L (136-145); CREATININE 0.92 mg/dL (0.70-1.30); SODIUM 139 mmol/L (136-145); eGFR NON BLACK RACES > 60 (>60)
[2020-02-15] MEDS ORDERED: HYDROGEN PEROXIDE 3% ONE (10:57)
--- NOTE | 2020-02-15 12:01 | DR.PROGNOT ---
Hospital Progress Notes - Progress Note for Day of: Progress Note Date: 02/15/20 - Chief Complaint Chief Complaint: s/p I&D skin abscess Rt knee . still having moderate drainage and pain Rt knee . WBC 14.9. FBS 123. culture is showing coag positve staph . afebrile . dressing was changed .. - Past Medical Family Social History Past Med/Fam/Surg Hx: No changes since H&P Allergies: Allergies No Known Drug Allergies Allergy (Verified 02/05/20 01:51) - Review Of Systems ROS: No change since H&P - Vital Signs Vital Signs: Temperature 98.3 F Pulse Rate [Right Brachial] 73 Pulse Rate 93 Respiratory Rate 18 Blood Pressure [Left Arm] 134/85 Blood Pressure 135/70 O2 Sat by Pulse Oximetry 97 - Physical Exam Oriented: Normal Eyes: Normal Ear: Normal Nose: Normal Throat: Normal Respiratory: Normal Cardiovascular: Normal GI:Auscultation: Normal GI:Palpation: Normal GI: Tenderness: Normal Skin: Tender, Other (moderate skin erythema and edema Rt knee 5x5 cm with improved cellulitis . normal Rt knee ROM ) Musculoskeletal: Right, Thigh, Knee, Leg Psychiatric: Normal Mood Description: Calm Speech Pattern: Clear, Appropriate - Laboratory and Diagnostics Result Diagrams: 02/15/20 04:15 02/15/20 04:15 Labs: 02/14/20 09:03 Knee - Right Wound Culture - Preliminary Laboratory WBC 14.9 X10^3/uL (3.6-10.0) H 02/15/20 04:15 RBC 4.58 X10^6/uL (4.7-6.0) L 02/15/20 04:15 Hgb 13.9 g/dL (13.5-18.0) 02/15/20 04:15 Hct 41.3 % (42.0-54.0) L 02/15/20 04:15 MCV 90.2 fL (80.0-100.0) 02/15/20 04:15 MCH 30.4 pg (27.0-34.0) 02/15/20 04:15 MCHC 33.7 g/dL (33.0-35.0) 02/15/20 04:15 RDW 12.9 % (11.6-16.5) 02/15/20 04:15 Plt Count 337 X10^3/uL (150.0-450.0) 02/15/20 04:15 MPV 7.7 fL (7.4-11.0) 02/15/20 04:15 Neut % (Auto) 71.2 % (42.0-75.0) 02/15/20 04:15 Lymph % (Auto) 16.0 % (21.0-51.0) L 02/15/20 04:15 [place] % (Auto) 9.2 % (0.0-13.0) 02/15/20 04:15 Eos % (Auto) 3.2 % (0.9-2.9) H 02/15/20 04:15 Baso % (Auto) 0.4 % (0.2-1.0) 02/15/20 04:15 Neut # (Auto) 10.6 x10^3/uL (2.2-4.8) H 02/15/20 04:15 Lymph # (Auto) 2.4 X10^3/uL (1.3-2.9) 02/15/20 04:15 [place] # (Auto) 1.4 x10^3/uL (0.3-0.8) H 02/15/20 04:15 Eos # (Auto) 0.5 x10^3/uL (0.0-0.2) H 02/15/20 04:15 Baso # (Auto) 0.1 X10^3/uL (0.0-0.1) 02/15/20 04:15 Absolute Nucleated RBC 0.0 /100WBC 02/15/20 04:15 Sodium 139 mmol/L (136-145) 02/15/20 04:15 Corrected Sodium 140 mmol/L (136-145) 02/15/20 04:15 Potassium 3.8 mmol/L (3.5-5.1) 02/15/20 04:15 Chloride 104 mmol/L (98-107) 02/15/20 04:15 Carbon Dioxide 26.2 mmol/L (21-32) 02/15/20 04:15 BUN 7 mg/dL (7-18) 02/15/20 04:15 Creatinine 0.92 mg/dL (0.70-1.30) 02/15/20 04:15 Est GFR (MDRD) Af Amer > 60 (>60) 02/15/20 04:15 Est GFR (MDRD) Non-Af > 60 (>60) 02/15/20 04:15 Glucose 125 mg/dL (65-99) H 02/15/20 04:15 Calcium 8.3 mg/dL (8.5-10.1) L 02/15/20 04:15 Corrected Calcium 9.1 mg/dL (8.5-10.1) 02/13/20 05:30 Total Bilirubin 0.50 mg/dL (0.2-1.0) 02/13/20 05:30 AST 14 Units/L (15-37) L 02/13/20 05:30 ALT 29 Units/L (12-78) 02/13/20 05:30 Alkaline Phosphatase 74 Units/L (46-116) 02/13/20 05:30 Total Protein 7.3 g/dL (6.4-8.2) 02/13/20 05:30 Albumin 3.0 g/dL (3.4-5.0) L 02/13/20 05:30 Globulin 4.3 g/dL (2.5-4.5) 02/13/20 05:30 Albumin/Globulin Ratio 0.7 Ratio (1.1-2.1) L 02/13/20 05:30 Vancomycin Trough 5.4 ug/mL (15-20) L 02/14/20 20:30 - Assessment and Plan 1: skin abscess with cellulitis Rt knee . same IV ATB and local care . - Problem Patient Problems: Patient Problems Infection of skin due to methicillin resistant Staphylococcus aureus (MRSA) (Acute) A49.02 Cellulitis of knee, right (Acute) L03.115 Effusion, right knee (Acute) M25.461 Pain in right knee (Acute) M25.561
[2020-02-15 20:27] LABS: CREATININE 0.89 mg/dL (0.70-1.30); VANCOMYCIN,TROUGH 15.8 ug/mL (15-20)
[2020-02-15] MEDS ORDERED: PHARMACY COMMENT IV NR (20:30)
[2020-02-16] MEDS: NS 1000 ML 1,000 ML IV SCH ×4 (03:24→22:25)
[2020-02-16] MEDS: NORCO 5/325 MG TAB PO PRN ×3 (05:09→20:40)
[2020-02-16] MEDS: VANCOMYCIN HCL 500 MG, VANCOMYCIN HCL 1 G in D5W 250 ML IV 250 ML IV SCH ×3 (05:41→21:33)
[2020-02-16 06:26] LABS: BASOPHILS # (AUTO) 0.1 X10^3/uL (0.0-0.1); BASOPHILS % (AUTO) 0.4 % (0.2-1.0); EOSINOPHILS # (AUTO) 0.5 x10^3/uL (0.0-0.2); EOSINOPHILS % (AUTO) 3.2 % (0.9-2.9); HEMATOCRIT 42.5 % (42.0-54.0); HEMOGLOBIN 14.3 g/dL (13.5-18.0); LYMPHOCYTES # (AUTO) 2.2 X10^3/uL (1.3-2.9); LYMPHOCYTES % (AUTO) 14.6 % (21.0-51.0); MEAN CORPUSCULAR HEMOGLOBIN 30.1 pg (27.0-34.0); MEAN CORPUSCULAR HGB CONC 33.7 g/dL (33.0-35.0); MEAN CORPUSCULAR VOLUME 89.4 fL (80.0-100.0); MONOCYTES # (AUTO) 1.3 x10^3/uL (0.3-0.8); MONOCYTES % (AUTO) 8.8 % (0.0-13.0); NEUTROPHILS # (AUTO) 10.8 x10^3/uL (2.2-4.8); PLATELET COUNT 389 X10^3/uL (150.0-450.0); RED BLOOD COUNT 4.75 X10^6/uL (4.7-6.0); RED CELL DISTRIBUTION WIDTH 12.8 % (11.6-16.5); WHITE BLOOD COUNT 14.8 X10^3/uL (3.6-10.0)
[2020-02-16 06:44] LABS: ALANINE AMINOTRANSFERASE 29 Units/L (12-78); ALBUMIN 2.8 g/dL (3.4-5.0); ALKALINE PHOSPHATASE 75 Units/L (46-116); ASPARTATE AMINO TRANSFERASE 10 Units/L (15-37); BLOOD UREA NITROGEN 8 mg/dL (7-18); CALCIUM 8.7 mg/dL (8.5-10.1); CHLORIDE 103 mmol/L (98-107); COR CA(FOR HYPOALB) 9.7 mg/dL (8.5-10.1); COR NA(FOR HYPERGLY) 139 mmol/L (136-145); CREATININE 0.89 mg/dL (0.70-1.30); SODIUM 139 mmol/L (136-145); TOTAL PROTEIN 7.6 g/dL (6.4-8.2); eGFR NON BLACK RACES > 60 (>60)
--- NOTE | 2020-02-16 09:30 | PCM.PROG ---
Progress Note - Progress Note for Day of Date of Exam: 02/15/20 - Subjective Subjective: IS A PATIENT OF . HE IS BEING TREATED FOR CELLULITIS OF THE RIGHT KNEE. PERFORMED I&D OF ABSCESS TO KNEE YESTERDAY. TODAY, HE IS ALERT AND ORIENTED, LYING IN BED ON MORNING ROUNDS. HE CONTINUES WITH MODERATED DRAINAGE AND REDNESS TO THE RIGHT KNEE. HE ALSO CONT INUES WITH PAIN. HIS VITALS THIS MORNING ARE: 98.3-73-18-97%-134/85. LABS WERE OBTAINED. ABNORMAL LAB VALUES INCLUDE THE FOLLOWING: WBC 14.9, RBC 4.58, HCT 41.3, GLUCOSE 123, CALCIUM 8.3. WOUND CULTURE IS PENDING. HE IS CURRENTLY RECEIVING VANCOMYCIN 1G IV Q8H, NS AT 125ML/HR, AND NORCO 5/325MG PO Q6H PRN PAIN. IS MONITORING WOUND AND DRESSING CHANGES. WE WILL CONTINUE WITH CURRENT PLAN OF CARE TODAY. OTHERWISE, WE WILL FOLLOW UP WITH AM LABS AND CONTINUE TO MONITOR. - Past Medical Family Social History Past Med/Fam/Surg Hx: No changes since H&P Allergies: Allergies No Known Drug Allergies Allergy (Verified 02/05/20 01:51) - Review of Systems ROS: No change since H&P - Vital Signs and I&O's Vital Signs: Temperature 98.0 F Pulse Rate [Right Brachial] 71 Pulse Rate 93 Respiratory Rate 20 Blood Pressure [Left Arm] 135/82 Blood Pressure 135/70 O2 Sat by Pulse Oximetry 96 Intake and Output: Intake & Output 02/13/20 02/14/20 02/15/20 02/16/20 11:59 11:59 11:59 11:59 Intake Total 1740 / 1740 5335 / 5335 4400 / 4400 6166 / 6166 Balance 1740 / 1740 5335 / 5335 4400 / 4400 6166 / 6166 - Physical Exam Oriented: Normal Eyes: Normal Ear: Normal Nose: Normal Throat: Normal Respiratory: Normal Cardiovascular: Normal Auscultation: Bowel Sounds: Normal Palpation: Normal Tenderness: Normal Skin: Tender, Other (moderate skin erythema and edema Rt knee 5x5 cm with improved cellulitis . normal Rt knee ROM ) Musculoskeletal: Right, Thigh, Knee, Leg Psychiatric: Normal Mood Description: Calm Speech Pattern: Clear, Appropriate - Laboratory and Diagnostics Result Diagrams: 02/16/20 05:20 02/16/20 05:20 Labs: 02/14/20 09:03 Knee - Right Wound Culture - Final Methicillin Resis Staph Aureus Laboratory WBC 14.8 X10^3/uL (3.6-10.0) H 02/16/20 05:20 RBC 4.75 X10^6/uL (4.7-6.0) 02/16/20 05:20 Hgb 14.3 g/dL (13.5-18.0) 02/16/20 05:20 Hct 42.5 % (42.0-54.0) 02/16/20 05:20 MCV 89.4 fL (80.0-100.0) 02/16/20 05:20 MCH 30.1 pg (27.0-34.0) 02/16/20 05:20 MCHC 33.7 g/dL (33.0-35.0) 02/16/20 05:20 RDW 12.8 % (11.6-16.5) 02/16/20 05:20 Plt Count 389 X10^3/uL (150.0-450.0) 02/16/20 05:20 MPV 7.0 fL (7.4-11.0) L 02/16/20 05:20 Neut % (Auto) 73.0 % (42.0-75.0) 02/16/20 05:20 Lymph % (Auto) 14.6 % (21.0-51.0) L 02/16/20 05:20 [place] % (Auto) 8.8 % (0.0-13.0) 02/16/20 05:20 Eos % (Auto) 3.2 % (0.9-2.9) H 02/16/20 05:20 Baso % (Auto) 0.4 % (0.2-1.0) 02/16/20 05:20 Neut # (Auto) 10.8 x10^3/uL (2.2-4.8) H 02/16/20 05:20 Lymph # (Auto) 2.2 X10^3/uL (1.3-2.9) 02/16/20 05:20 [place] # (Auto) 1.3 x10^3/uL (0.3-0.8) H 02/16/20 05:20 Eos # (Auto) 0.5 x10^3/uL (0.0-0.2) H 02/16/20 05:20 Baso # (Auto) 0.1 X10^3/uL (0.0-0.1) 02/16/20 05:20 Absolute Nucleated RBC 0.0 /100WBC 02/16/20 05:20 Sodium 139 mmol/L (136-145) 02/16/20 05:20 Corrected Sodium 139 mmol/L (136-145) 02/16/20 05:20 Potassium 4.0 mmol/L (3.5-5.1) 02/16/20 05:20 Chloride 103 mmol/L (98-107) 02/16/20 05:20 Carbon Dioxide 27.0 mmol/L (21-32) 02/16/20 05:20 BUN 8 mg/dL (7-18) 02/16/20 05:20 Creatinine 0.89 mg/dL (0.70-1.30) 02/16/20 05:20 Est GFR (MDRD) Af Amer > 60 (>60) 02/16/20 05:20 Est GFR (MDRD) Non-Af > 60 (>60) 02/16/20 05:20 Glucose 117 mg/dL (65-99) H 02/16/20 05:20 Calcium 8.7 mg/dL (8.5-10.1) 02/16/20 05:20 Corrected Calcium 9.7 mg/dL (8.5-10.1) 02/16/20 05:20 Total Bilirubin 0.30 mg/dL (0.2-1.0) 02/16/20 05:20 AST 10 Units/L (15-37) L 02/16/20 05:20 ALT 29 Units/L (12-78) 02/16/20 05:20 Alkaline Phosphatase 75 Units/L (46-116) 02/16/20 05:20 C-Reactive Protein 40.80 mg/L (0-3.0) H 02/16/20 05:20 Total Protein 7.6 g/dL (6.4-8.2) 02/16/20 05:20 Albumin 2.8 g/dL (3.4-5.0) L 02/16/20 05:20 Globulin 4.8 g/dL (2.5-4.5) H 02/16/20 05:20 Albumin/Globulin Ratio 0.6 Ratio (1.1-2.1) L 02/16/20 05:20 Vancomycin Trough 15.8 ug/mL (15-20) 02/15/20 20:00
[2020-02-16] MEDS ORDERED: ZOSYN VIAL 4.5 GRAMS IV ONE (11:03)
[2020-02-16] MEDS ORDERED: NS 100 ML IV + SPIKE MINIBAG* 100 ML IV ONE ×2 (11:04→19:16)
[2020-02-16] MEDS: ZOSYN VIAL 4.5 GRAMS 4.5 G in NS 100 ML IV 100 ML IV SCH ×3 (11:11→21:33)
--- NOTE | 2020-02-16 23:26 | PCM.PROG ---
Progress Note - Progress Note for Day of Date of Exam: 02/16/20 - Subjective Subjective: IS A PATIENT OF . HE IS BEING TREATED FOR CELLULITIS OF THE RIGHT KNEE. PERFORMED I&D OF ABSCESS TO KNEE TWO DAYS AGO. TODAY, HE IS ALERT AND ORIENTED, LYING IN BED ON MORNING ROUNDS. HE CONTINUES WITH MODERATED DRAINAGE AND REDNESS TO THE RIGHT KNEE. HE ALSO C ONTINUES WITH PAIN. HIS VITALS THIS MORNING ARE: 98.0-71-20-96%-135/82. LABS WERE OBTAINED. ABNORMAL LAB VALUES INCLUDE THE FOLLOWING: WBC 14.8, GLUCOSE 117, AST 10, CRP 40.80, ALBUMIN 2.8, GLOBULIN 4.8. WOUND CULTURE IS POSITIVE FOR GROWTH OF MRSA. HE IS CURRENTLY RECEIVING VANCOMYCIN 1G IV Q8H, NS AT 125ML/HR, AND NORCO 5/325MG PO Q6H PRN PAIN. IS MONITORING WOUND AND DRESSING CHANGES. WE WILL CONTINUE WITH CURRENT PLAN OF CARE TODAY AND ADD ZOSYN 4.5G IV TID. OTHERWISE, WE WILL FOLLOW UP WITH AM LABS AND CONTINUE TO MONITOR. - Past Medical Family Social History Past Med/Fam/Surg Hx: No changes since H&P Allergies: Allergies No Known Drug Allergies Allergy (Verified 02/05/20 01:51) - Review of Systems ROS: No change since H&P - Vital Signs and I&O's Vital Signs: Temperature 98.6 F Pulse Rate [Right Brachial] 75 Pulse Rate 93 Respiratory Rate 18 Blood Pressure [Left Arm] 130/89 Blood Pressure 135/70 O2 Sat by Pulse Oximetry 97 Intake and Output: Intake & Output 02/14/20 02/15/20 02/16/20 02/17/20 11:59 11:59 11:59 11:59 Intake Total 5335 / 5335 4400 / 4400 6166 / 6166 3500 / 3500 Output Total 1200 / 1200 Balance 5335 / 5335 4400 / 4400 6166 / 6166 2300 / 2300 - Physical Exam Oriented: Normal Eyes: Normal Ear: Normal Nose: Normal Throat: Normal Respiratory: Normal Cardiovascular: Normal : Normal Auscultation: Bowel Sounds: Normal Palpation: Normal Tenderness: Normal Skin: Tender, Other (moderate skin erythema and edema Rt knee 5x5 cm with improved cellulitis . normal Rt knee ROM ) Musculoskeletal: Right, Thigh, Knee, Leg Psychiatric: Normal Mood Description: Calm Speech Pattern: Clear, Appropriate - Laboratory and Diagnostics Result Diagrams: 02/16/20 05:20 02/16/20 05:20 Labs: 02/14/20 09:03 Knee - Right Wound Culture - Final Methicillin Resis Staph Aureus Laboratory WBC 14.8 X10^3/uL (3.6-10.0) H 02/16/20 05:20 RBC 4.75 X10^6/uL (4.7-6.0) 02/16/20 05:20 Hgb 14.3 g/dL (13.5-18.0) 02/16/20 05:20 Hct 42.5 % (42.0-54.0) 02/16/20 05:20 MCV 89.4 fL (80.0-100.0) 02/16/20 05:20 MCH 30.1 pg (27.0-34.0) 02/16/20 05:20 MCHC 33.7 g/dL (33.0-35.0) 02/16/20 05:20 RDW 12.8 % (11.6-16.5) 02/16/20 05:20 Plt Count 389 X10^3/uL (150.0-450.0) 02/16/20 05:20 MPV 7.0 fL (7.4-11.0) L 02/16/20 05:20 Neut % (Auto) 73.0 % (42.0-75.0) 02/16/20 05:20 Lymph % (Auto) 14.6 % (21.0-51.0) L 02/16/20 05:20 [place] % (Auto) 8.8 % (0.0-13.0) 02/16/20 05:20 Eos % (Auto) 3.2 % (0.9-2.9) H 02/16/20 05:20 Baso % (Auto) 0.4 % (0.2-1.0) 02/16/20 05:20 Neut # (Auto) 10.8 x10^3/uL (2.2-4.8) H 02/16/20 05:20 Lymph # (Auto) 2.2 X10^3/uL (1.3-2.9) 02/16/20 05:20 [place] # (Auto) 1.3 x10^3/uL (0.3-0.8) H 02/16/20 05:20 Eos # (Auto) 0.5 x10^3/uL (0.0-0.2) H 02/16/20 05:20 Baso # (Auto) 0.1 X10^3/uL (0.0-0.1) 02/16/20 05:20 Absolute Nucleated RBC 0.0 /100WBC 02/16/20 05:20 Sodium 139 mmol/L (136-145) 02/16/20 05:20 Corrected Sodium 139 mmol/L (136-145) 02/16/20 05:20 Potassium 4.0 mmol/L (3.5-5.1) 02/16/20 05:20 Chloride 103 mmol/L (98-107) 02/16/20 05:20 Carbon Dioxide 27.0 mmol/L (21-32) 02/16/20 05:20 BUN 8 mg/dL (7-18) 02/16/20 05:20 Creatinine 0.89 mg/dL (0.70-1.30) 02/16/20 05:20 Est GFR (MDRD) Af Amer > 60 (>60) 02/16/20 05:20 Est GFR (MDRD) Non-Af > 60 (>60) 02/16/20 05:20 Glucose 117 mg/dL (65-99) H 02/16/20 05:20 Calcium 8.7 mg/dL (8.5-10.1) 02/16/20 05:20 Corrected Calcium 9.7 mg/dL (8.5-10.1) 02/16/20 05:20 Total Bilirubin 0.30 mg/dL (0.2-1.0) 02/16/20 05:20 AST 10 Units/L (15-37) L 02/16/20 05:20 ALT 29 Units/L (12-78) 02/16/20 05:20 Alkaline Phosphatase 75 Units/L (46-116) 02/16/20 05:20 C-Reactive Protein 40.80 mg/L (0-3.0) H 02/16/20 05:20 Total Protein 7.6 g/dL (6.4-8.2) 02/16/20 05:20 Albumin 2.8 g/dL (3.4-5.0) L 02/16/20 05:20 Globulin 4.8 g/dL (2.5-4.5) H 02/16/20 05:20 Albumin/Globulin Ratio 0.6 Ratio (1.1-2.1) L 02/16/20 05:20 Vancomycin Trough 15.8 ug/mL (15-20) 02/15/20 20:00
[2020-02-17] MEDS: NS 1000 ML 1,000 ML IV SCH (03:03)
[2020-02-17] MEDS ORDERED: NS 100 ML IV + SPIKE MINIBAG* 100 ML IV ONE (04:19)
[2020-02-17] MEDS: ZOSYN VIAL 4.5 GRAMS 4.5 G in NS 100 ML IV 100 ML IV SCH (05:29)
[2020-02-17 06:28] LABS: BASOPHILS % (AUTO) 0.3 % (0.2-1.0); EOSINOPHILS # (AUTO) 0.5 x10^3/uL (0.0-0.2); EOSINOPHILS % (AUTO) 3.6 % (0.9-2.9); HEMATOCRIT 41.6 % (42.0-54.0); LYMPHOCYTES # (AUTO) 2.1 X10^3/uL (1.3-2.9); LYMPHOCYTES % (AUTO) 16.7 % (21.0-51.0); MEAN CORPUSCULAR HEMOGLOBIN 30.3 pg (27.0-34.0); MEAN CORPUSCULAR HGB CONC 33.7 g/dL (33.0-35.0); MEAN CORPUSCULAR VOLUME 89.8 fL (80.0-100.0); MEAN PLATELET VOLUME 7.2 fL (7.4-11.0); MONOCYTES # (AUTO) 1.3 x10^3/uL (0.3-0.8); MONOCYTES % (AUTO) 9.8 % (0.0-13.0); NEUTROPHILS % (AUTO) 69.6 % (42.0-75.0); PLATELET COUNT 372 X10^3/uL (150.0-450.0); RED BLOOD COUNT 4.63 X10^6/uL (4.7-6.0); RED CELL DISTRIBUTION WIDTH 12.9 % (11.6-16.5); WHITE BLOOD COUNT 12.9 X10^3/uL (3.6-10.0)
[2020-02-17 06:42] LABS: ALANINE AMINOTRANSFERASE 32 Units/L (12-78); ALBUMIN 2.9 g/dL (3.4-5.0); ALKALINE PHOSPHATASE 73 Units/L (46-116); ASPARTATE AMINO TRANSFERASE 10 Units/L (15-37); BLOOD UREA NITROGEN 10 mg/dL (7-18); CARBON DIOXIDE 28.6 mmol/L (21-32); CHLORIDE 103 mmol/L (98-107); COR CA(FOR HYPOALB) 9.9 mg/dL (8.5-10.1); CREATININE 0.99 mg/dL (0.70-1.30); SODIUM 140 mmol/L (136-145); TOTAL PROTEIN 7.9 g/dL (6.4-8.2); eGFR NON BLACK RACES > 60 (>60)
[2020-02-17 07:08] LABS: VANCOMYCIN,TROUGH 13.6 ug/mL (15-20)
[2020-02-17 07:40] VITALS: BP 115/75
[2020-02-17] MEDS: VANCOMYCIN HCL 500 MG, VANCOMYCIN HCL 1 G in D5W 250 ML IV 250 ML IV SCH (08:45)
[2020-02-17] MEDS: NORCO 5/325 MG TAB PO PRN (10:38)
== END 2020-02-17 11:00 | disposition left against medical advice (07) | DRG 603 ==
LOC: ER 23:19 → MED/SURG 02-13 00:11
PROVIDERS: ADMIT Family Medicine; ATTEND Family Medicine
DX: Z11.59 Encounter for screening for other viral diseases; L03.116 Cellulitis of left lower limb; L03.115 Cellulitis of right lower limb; R26.2 Difficulty in walking, not elsewhere classified; I10 Essential (primary) hypertension; M25.561 Pain in right knee; M25.461 Effusion, right knee; I25.10 Atherosclerotic heart disease of native coronary artery without angina pectoris; B95.62 Methicillin resistant Staphylococcus aureus infection as the cause of diseases classified elsewhere; R79.82 Elevated C-reactive protein (CRP)
CPT/HCPCS: 36415; 73560; 73701; 80048; 80053; 80202; 82565; 85025; 86140; 87040; 87070; 87075; 87077; 87186; 87205; 87635; 96365; 96367; 96374; 96375; 99284; A4222; G0378; J1170; J1885; J2543; J3370; J7030; J7050; J7060